=== PATIENT | female | born 1990 | race Caucasian/White ===

== ENCOUNTER 2024-08-06 06:38 | Outpatient (CLI) | payer SELFPAY ==
[2024-08-06] VITALS (10 sets, daily range): BP systolic 129; BP diastolic 62; PULSE 47–70; TEMP 97.5–97.6
[~2024-08-06] VITALS: Ht 175.3 cm; Wt 75.9 kg
[2024-08-06] MEDS ORDERED: LR 1,000 ML IV PRN (07:15)
[2024-08-06] MEDS ORDERED: fentaNYL 50 MCG/ML 2 ML VIAL IV ONE (07:30)
[2024-08-06] MEDS ORDERED: Ondansetron 4 MG/2 ML VIAL IV ONE ×2 (07:45→10:45)
[2024-08-06 07:46] LABS: BASO % 0.3 % (0.0-2.0); EOS # 0.2 K/mm3 (0.0-0.7); EOS % 1.7 % (0.0-4.0); GRAN # 8.4 K/mm3 (1.4-6.5); GRAN % 70.2 % (42.2-75.2); HEMOGLOBIN 13.3 g/dl (12.5-16.0); LYMPH # 2.4 K/mm3 (1.2-3.4); LYMPH % 20.1 % (20.0-51.0); MEAN CELL VOLUME 93 fl (80.0-100.0); MEAN CORPUSCULAR HEMOGLOBIN 33 pg (27-31); MEAN CORPUSCULAR HGB CONC 36 g/dl (33.0-37.0); MEAN PLATELET VOLUME 10.7 fl (7.4-10.4); MONO # 0.9 K/mm3 (0.1-0.6); MONO % 7.3 % (1.7-9.3); PLATELET COUNT 231 K/mm3 (130-400); REDCELL DISTRIBUTION WIDTH-CV 12.7 % (11.5-14.5)
[2024-08-06] MEDS ORDERED: ZOFRAN 4MG T4 MG/TAB PO (07:49)
[2024-08-06 07:58] LABS: ALBUMIN 3.1 g/dL (3.5-5.0); BILIRUBIN,TOTAL 0.8 mg/dL (0.2-1.2); CALCIUM 9.5 mg/dL (8.4-10.2); CREATININE, serum 0.61 mg/dL (0.57-1.11); POTASSIUM 3.5 mEq/L (3.5-4.5); TOTAL PROTEIN 7.1 g/dl (6.2-8.1)
[2024-08-06 08:00] LABS: TRICYCLIC ANTIDEPRESS URINE NEGATIVE (NEGATIVE)
[2024-08-06 08:33] LABS: HIV 1/2 Antibodies Non-Reactive; HIV-1p24 Antigen Non-Reactive
--- NOTE | 2024-08-06 08:44 | NUR ---
0605- PT TO UNIT FROM ER. PT COMPLAINING OF ABDOMINAL PAIN, N/V, AND CRAMPING. 0612- PT OREINTED TO ROOM AND CHANGED INTO GOWN. PT DENIES LOF AND BV. PT STATES THAT SHE MOVED HERE YESTERDAY FROM [facility]. SHE LAST HAD CARE AT 15 WEEKS, BUT LOST HER INSURANCE. SHE STATES SHE IS DUE 10/27/2024, BUT IS UNSURE OF HER LAST PERIOD. PT STATED THAT SHE JUST RECIEVED HER RHOGAM SHOT FROM THE HOSPITAL IN [place] 4-5 DAYS AGO. PT WAS UNABLE TO REMAIN STILL FOR MUCH TIME, SO DIFFICULTY TRACING FHT DURING THIS TIME. WAS ABLE TO HEAR AND FEEL ACTIVE MOVEMENT. 0708- CALLED DR MELCHOR TO NOTIFY ABOUT PT AND HX PT HAD GIVEN ME. DR MELCHOR ORDERED, IV START WITH LR'S, A CBC, CMP, URINE TOX SCREEN, AND A PRENANTAL PANEL.
--- NOTE | 2024-08-06 09:00 | NUR ---
0900- ULTRASOUND AT BEDSIDE DOING SONOGRAM. FHT NOT TRACING DURING THIS TIME.
--- NOTE | 2024-08-06 10:14 | NUR ---
1014- CALLED DR MELCHOR, DR ARCE ANSWERED DR MELCHORS PHONE. GAVE DR ARCE THE MESSAGE FOR DR MELCHOR THAT PT WAS REQUESTING MORE ZOFRAN FOR NAUSEA. DR ARCE SAID SHE WOULD GIVE DR MELCHOR THE MESSAGE. 1026- DR MELCHOR RETURNED MY CALL AND ORDERED 4 ZOFRAN, 12.5 PHENERGRAN, 10 OF PEPCID. 1132- DR MELCHOR ON UNIT LOOKING AT LABS AND TALKING TO PT. PT DIAGNOSED WITH UTI. DR MELCHOR ORDERED 1 GRAM ROCEPHIN, AND SENT MACROBID 100MG BID X 7 DAYS TO PT'S PREFERRED PHARMACY. PT HAD 3 LITERS OF LR'S AND WAS ABLE TO URINATE [address] MELCHOR ORDERED 1 MORE LITER OF LR BEFORE PT DC'S HOME.
[2024-08-06] MEDS ORDERED: Promethazine 50 MG/ML 1 ML VIAL IM ONE (10:45)
[2024-08-06 10:50] LABS: COLLECTION METHOD CATHETER
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
[2024-08-06 11:21] LABS: PH 5.5 (5.0-8.5); URINE APPEARANCE TURBID (CLEAR/HAZY); URINE BLOOD NEGATIVE (NEGATIVE); URINE COLOR ORANGE (YELLOW); URINE GLUCOSE NEGATIVE (NEGATIVE); URINE KETONE 3+ (NEGATIVE); URINE NITRATE POSITIVE (NEGATIVE); URINE PROTEIN(semi-quant) 2+ (NEGATIVE)
[2024-08-06] MEDS ORDERED: cefTRIAXone 1 G in Water For Injection,Sterile 10 ML IV ONE (11:30)
[2024-08-06] MEDS ORDERED: MACROBID 1100 MG/CAP PO (11:42)
[2024-08-06 11:49] LABS: MUCOUS PRESENT (NOT PRESENT); URINE RBC 0-2 /hpf (0-2)
[2024-08-06 11:50] LABS: URINE BACTERIA RARE /hpf (NONE SEEN)
[2024-08-06] MEDS ORDERED: ZOFRAN ODT4 MG PO (11:55)
--- NOTE | 2024-08-06 14:00 | NUR ---
PT AND SISTER IN LAW MET WITH MATERNAL/CHILD FROM THE HEALTH DEPARTMENT. PT AND SISTER IN LAW AMBULATED OFF THE UNIT TO D/C HOME.
[2024-08-06 23:55] LABS: HEPATITIS B SURFACE ANTIGEN Negative (Negative)
== END 2024-08-06 14:00 | disposition home or self-care (01) ==
LOC: LDR 06:38 → LDRO 06:38 → LDR 07:15 → LDRO 14:00
PROVIDERS: Obstetrics & Gynecology
DX: O26.893 Other specified pregnancy related conditions, third trimester (principal); R10.9 Unspecified abdominal pain; Z3A.28 28 weeks gestation of pregnancy
CPT/HCPCS: OP; J0696; J2405; J2550; J3010; J7120

== ENCOUNTER 2024-08-09 05:57 | Outpatient (CLI) | payer SELFPAY ==
[~2024-08-09] VITALS: Ht 175.3 cm; Wt 75.9 kg
[~2024-08-09 05:57] MED LIST: MACROBID 1100 MG/CAP PO; ZOFRAN 4MG T4 MG/TAB PO; ZOFRAN ODT4 MG PO
--- NOTE | 2024-08-09 06:05 | NUR ---
PATIENT ARRIVES ON UNIT, [facility] PLACES EFM AND TOCO. PATIENT REPORTS ABDOMINAL PAIN, NO LEAKING OF FLUID OR BLEEDING, GOOD MOVEMENT, PATIENT REPORTS SHE FELL YESTERDAY AROUND 7PM ON HER BUTT AND SLID DOWN 7 STAIRS. SHE ALSO COMPLAINS OF FEELING LIKE SHE NEEDS TO URINATE BUT ONLY BEING ABLE TO TRICKLE AND ALSO SHE HAS BEEN NAUSOUS AND ALSO UNABLE TO SLEEP. ASSESSMENTS COMPLETED.
[2024-08-09] MEDS ORDERED: LR 1,000 ML IV PRN (06:45)
[2024-08-09 07:00] VITALS: BP 113/59; PULSE 77; TEMP 97.8
[2024-08-09 07:09] LABS: COLLECTION METHOD CATHETER
[2024-08-09 07:34] LABS: PH 6.5 (5.0-8.5); URINE APPEARANCE CLEAR (CLEAR/HAZY); URINE BLOOD NEGATIVE (NEGATIVE); URINE COLOR YELLOW (YELLOW); URINE GLUCOSE NEGATIVE (NEGATIVE); URINE KETONE NEGATIVE (NEGATIVE); URINE NITRATE NEGATIVE (NEGATIVE); URINE PROTEIN(semi-quant) NEGATIVE (NEGATIVE)
[2024-08-09 08:00] VITALS: BP 130/81; PULSE 83
[2024-08-09] MEDS ORDERED: Acetaminophen 500 MG TAB PO ONE (08:00)
--- NOTE | 2024-08-09 08:55 | NUR ---
AT NURSES STATION AND UPDATED ON PATIENT STATUS, THIS RN DISCUSSES POSSIBILITY OF GIVIGN RHOGAM, TDAP AND POSSIBLY FLU VACCINE. AGREES.
[2024-08-09 09:00] VITALS: BP 118/77; PULSE 74
[2024-08-09] MEDS ORDERED: Famotidine 20 MG TAB PO ONE (09:00)
[2024-08-09] MEDS ORDERED: diphenhydrAMINE 50 MG CAP PO ONE (09:00)
[2024-08-09] MEDS ORDERED: Tdap Vaccine 0.5 ML SYRINGE IM ONE (09:15)
--- NOTE | 2024-08-09 09:15 | NUR ---
THIS RN TO BEDSIDE TO OFFER PATIETN, RHOGAM, TDAP AND FLU VACCINE. PATIENT DECLINES FLU VACCINE AND STATES "I GOT RHOGAM IN [place] AT THE HOSPITAL BECAUSE I KNEW I NEEDED FROM MY PAST PREGNANCIES." THIS RN GIVES PATIENT TDAP INFORMATION PAPER FOR PATIENT TO DECIDE IF SHE WOULD LIKE THE VACCINE.
[2024-08-09] MEDS ORDERED: Rho(D) Imm Globulin 1,500 UNITS (300 MCG)/2 ML SYRINGE IV\\IM SCH (09:30)
--- NOTE | 2024-08-09 09:35 | NUR ---
PATIENT REQUESTING TO SHOWER, IV COVERED, PATIENT ASSISTED TO RESTROOM TO SHOWER INDEPENDENTLY
[2024-08-09 10:00] VITALS: BP 98/54; PULSE 66
--- NOTE | 2024-08-09 10:35 | NUR ---
1035 PT GIVEN BOTH WRITTEN AND VERBAL DISCHARGE INSTRUCTIONS. PT INSTRUCTED TO CALL/COME BACK IF PT NOTICES ANY LOF, VB, DFM, STRONG/REGULAR CTX, OR ANY OTHER CHANGES/CONCERNS. PT ENCOURAGED TO MAKE APPOINTMENT WITH AN OB TO ESTABLISH CARE. PT VERBALIZES UNDERSTANDING AND HAS NO QUESTIONS AT THIS TIME.
== END 2024-08-09 11:05 | disposition home or self-care (01) ==
LOC: LDRO 05:57 → LDR 06:10 → LDRO 11:05
PROVIDERS: Obstetrics & Gynecology
DX: O9A.213 Injury, poisoning and certain other consequences of external causes complicating pregnancy, third trimester (principal); O26.893 Other specified pregnancy related conditions, third trimester; R52 Pain, unspecified; W19.XXXA Unspecified fall, initial encounter; Z3A.28 28 weeks gestation of pregnancy
CPT/HCPCS: OP; J7120